=== PATIENT | male | born 1955 ===

== ENCOUNTER 2021-03-13 14:59 | Outpatient (REF) | payer OTHER, SELFPAY ==
[2021-03-15 08:43] LABS: Binax Internal Control QC Valid; Binax Now Covid-19 Ag Positive (Negative)
== END 2021-03-13 15:00 | disposition home or self-care (01) ==
LOC: HO.HMGCLDS 14:59
PROVIDERS: Visit Provider Internal Medicine
DX: Z13.89 Encounter for screening for other disorder (principal)

== ENCOUNTER 2021-04-13 11:27 | Outpatient (REF) | payer OTHER, SELFPAY ==
[2021-04-13 14:09] LABS: Alanine Aminotransferase 64 U/L (0-40); Albumin Level 4.2 g/dL (3.5-5.0); Alkaline Phosphatase 87 U/L (39-117); Anion Gap 15 (12-20); Aspartate Amino Transferase 45 U/L (5-37); Bilirubin Total 0.8 mg/dL (0.0-1.0); Blood Urea Nitrogen 6 mg/dL (9-16); Calcium 9.3 mg/dL (8.4-10.2); Carbon Dioxide 24 mmol/L (22-29); Chloride 105 mmol/L (96-108); Cholesterol 282 mg/dL; Estimated Glomerular Filt Rate > 60; Glucose Fasting 113 mg/dL (60-99); HDL Cholesterol 53 mg/dL; LDL Cholesterol Calculated 165 mg/dl; Potassium 3.9 mmol/L (3.3-5.1); Sodium 140 mmol/L (135-145); Total Protein 7.1 g/dL (6.5-8.0); Triglycerides 324 mg/dL
[2021-04-13 14:31] LABS: Prostate Specific Antigen Scr 1.03 ng/mL (<0.05-4.0); TSH reflex Free T4 2.25 uIU/mL (0.32-4.0)
== END 2021-04-13 11:28 | disposition home or self-care (01) ==
LOC: HO.HMGCLDS 11:27
PROVIDERS: Visit Provider Nurse Practitioner Family
DX: Z00.00 Encounter for general adult medical examination without abnormal findings (principal); Z12.5 Encounter for screening for malignant neoplasm of prostate
CPT/HCPCS: 36415; 80053; 80061; 84153; 84443

== ENCOUNTER 2021-04-24 11:04 | Outpatient (REF) | payer OTHER, SELFPAY ==
--- NOTE | ~2021-04-24 | XR_ITS ---
EXAMINATION: XR HIP, RIGHT CLINICAL INFORMATION: Pain COMPARISON: None TECHNIQUE: Two views of the right hip. FINDINGS: Bone alignment is normal. No fracture or dislocation is seen. There is severe arthritis of the right hip joint with joint space narrowing, osteophyte formation and subchondral cyst formation. Soft tissues are unremarkable. XR/XR hip RT min 2V IMPRESSION: Severe right hip arthritis.
== END 2021-04-24 11:05 | disposition home or self-care (01) ==
LOC: HO.HMGCX 11:04
PROVIDERS: Visit Provider Nurse Practitioner Family
DX: M16.11 Unilateral primary osteoarthritis, right hip (principal); M25.551 Pain in right hip
CPT/HCPCS: 73502

== ENCOUNTER 2021-06-11 08:57 | Outpatient (REF) | payer OTHER, SELFPAY ==
--- NOTE | ~2021-06-11 | US_ITS ---
EXAMINATION: US ABDOMEN COMPLETE CLINICAL INFORMATION: Abnormal levels of other serum enzymes. COMPARISON: None. TECHNIQUE: Real-time imaging of the abdominal viscera. FINDINGS: PANCREAS: Normal. ABDOMINAL AORTA: The proximal, mid, and distal segments are normal in caliber. INFERIOR VENA CAVA: Visualized portions are normal. LIVER: The liver is diffusely echogenic. The liver is normal in size. The liver contour is normal. No focal hepatic lesion. There is no intrahepatic biliary duct dilatation seen. GALLBLADDER: Gallbladder wall thickness is 0.30 cm. The gallbladder is physiologically distended. Multiple mobile gallstones are present. No evidence of gallbladder wall thickening or pericholecystic fluid. COMMON BILE DUCT: Normal in caliber measuring 0.3 cm in diameter. RIGHT KIDNEY: Normal. No hydronephrosis. No renal calculi or focal parenchymal lesions. The kidney measures 10.1 cm in maximum dimension. LEFT KIDNEY: Normal. No hydronephrosis. No renal calculi or focal parenchymal lesions. The kidney measures 11.4 cm in maximum dimension. SPLEEN: Normal. The spleen measures 9.7 cm in maximum dimension. FREE FLUID: None. US/US abdomen complete IMPRESSION: Cholelithiasis without wall thickening. Hepatic steatosis without focal lesion. The rest of the abdominal ultrasound is unremarkable.
== END 2021-06-11 08:58 | disposition home or self-care (01) ==
LOC: HO.HMGCX 08:57
PROVIDERS: PCP Nurse Practitioner Family; Visit Provider Nurse Practitioner Family
DX: R74.8 Abnormal levels of other serum enzymes (principal)
CPT/HCPCS: 76700

== ENCOUNTER 2022-03-01 07:38 | Outpatient (REF) | payer OTHER, SELFPAY ==
[2022-03-01 11:26] LABS: Alanine Aminotransferase 24 U/L (0-40); Albumin Level 4.4 g/dL (3.5-5.0); Alkaline Phosphatase 59 U/L (39-117); Anion Gap 10 (12-20); Aspartate Amino Transferase 25 U/L (5-37); Bilirubin Total 0.6 mg/dL (0.0-1.0); Blood Urea Nitrogen 19 mg/dL (9-16); Calcium 9.1 mg/dL (8.4-10.2); Carbon Dioxide 25 mmol/L (22-29); Chloride 109 mmol/L (96-108); Cholesterol 220 mg/dL; Estimated Glomerular Filt Rate > 60; Glucose Random 99 mg/dL (60-115); HDL Cholesterol 44 mg/dL; LDL Cholesterol Calculated 156 mg/dl; Potassium 4.4 mmol/L (3.3-5.1); Sodium 140 mmol/L (135-145); Total Protein 6.9 g/dL (6.5-8.0); Triglycerides 104 mg/dL
[2022-03-04 22:48] LABS: A. Phagocytphilium DNA,RT-PCR NOT DETECTED (NOT DETECTED); Babesia Microti DNA, RT-PCR NOT DETECTED (NOT DETECTED); Borrelia Miyamotoi,DNA RT-PCR NOT DETECTED (NOT DETECTED); E.Chaffeensis DNA RT-PCR NOT DETECTED (NOT DETECTED); Lyme(Borrelia ssp)DNA RT-PCR NOT DETECTED (NOT DETECTED)
[2022-03-05 04:40] LABS: HBS Num1 0.78 mIU/mL (0-7.99); HBc Num1 0.05 S/CO (0.00-0.79); HBsAGNum1 0.29 S/CO (0.00-0.99); Hepatitis A Antibody IgM 0.21 Index (0-0.79); Hepatitis B Core Antibody Nonreactive (Nonreactive); Hepatitis B Surface Antigen Negative (Negative); ~HepC Num1 0.08 S/CO (0.00-0.79); ~Hepatitis A Antibody IgM Nonreactive (Nonreactive); ~Hepatitis B Surface Antibody NONREACTIVE (Nonreactive); ~Hepatitis C Antibody Nonreactive (Nonreactive)
== END 2022-03-01 07:39 | disposition home or self-care (01) ==
LOC: HO.HMGCLDS 07:38
PROVIDERS: PCP Nurse Practitioner Family; Visit Provider Nurse Practitioner Family
DX: R74.8 Abnormal levels of other serum enzymes (principal); E78.5 Hyperlipidemia, unspecified; T14.8XXA Other injury of unspecified body region, initial encounter; W57.XXXA Bitten or stung by nonvenomous insect and other nonvenomous arthropods, initial encounter
CPT/HCPCS: 36415; 80053; 80061; 86704; 86706; 86709; 86803; 87340; 87798; 87801

== ENCOUNTER 2023-01-01 09:04 | Outpatient (AMB) | payer OTHER, SELFPAY ==
--- NOTE | 2023-01-01 08:41 | A.OFFPC_ITS ---
Intake Visit Reasons: follow up [phone] Allergies No Known Allergies Allergy (Verified 01/01/23 08:41) Tobacco use date assessed: 06/18/22 HPI follow up [phone] HPI Details HTN: Pt has been monitoring his blood pressure at home. He reports that it was in the 140s systolically today, though pt is currently sick. Pt stopped taking his losartan because it was causing dizziness. Will start amlodipine 2.5mg. Will have pt continue to monitor his blood pressure at home and bring values in. Denies chest pain, shortness of breath, headache, dizziness, and blurred vision. Pt stopped taking his rosuvastatin as well because he did not know which med was for BP. Will have him restart this. Labs have already been ordered, encouraged pt to have these drawn. [facility] Medical History Arthritis of right hip Hypertension Generalized anxiety disorder Family History Father Substance use disorder Mother No problems noted. Brother No problems noted. Son No problems noted. Son No problems noted. Sister No problems noted. Sister No problems noted. Daughter No problems noted. Daughter No problems noted. Social History Housing: House Alcohol intake: current Alcohol intake frequency: a few times a month Patient Tobacco Use Status: Never used Tobacco e-Cigarette/Vaping Use: Never Used Second Hand Smoke Exposure: No service: Yes Current occupational status: employed Current occupation: [employer] Current occupational exposures/hazards: Yes Cognitive needs: No Hearing needs: No Vision needs: No Questionnaire Thrive Questionnaire Date Thrive assessed: 04/30/21 RICHARD-7 AMB Questionnaire RICHARD-7 Date RICHARD - 7 assessed: 04/30/21 Source: Developed by Drs. Vlad Christy, Xiomy Peralta, Biju Adan and colleagues, with an educational shola from [facility]. Review of Systems Const Reports as per HPI Physical exam (Primary Care) Tobacco/Smoking Status: Tobacco use Status Tobacco use date assessed 06/18/22 01/01/23 08:43 Patient Tobacco Use Status Never used Tobacco 01/01/23 08:43 e-Cigarette/Vaping Use Never Used 01/01/23 08:43 Thrive Assessment: Date of Thrive Assessment Date Thrive assessed 04/30/21 01/01/23 08:43 Const General: cooperative Orientation/consciousness: patient oriented x3 Neuro General: patient oriented x3 Psych Appearance: grossly normal Mental Status: mental status grossly normal Speech and movement: Clear speech present Affect: normal affect Attitude: cooperative Thought process: Normal thought process present Thought content: Normal thought content present Insight: Good insight present (Psych) Judgement: Good judgement present (Psych) Telehealth Telehealth Location of provider rendering services: practice address Location of patient: address on file Patient Identification confirmed using: Name, : Yes Telehealth method: video Patient verbally consented to treatment: Yes Patient verbally consented to billing insurance company: Yes Patient informed of any privacy concerns related to visit: Yes Minutes spent on Phone/Video with Pt.: 10 Assessment and Plan Assessment & Plan (1) Hypertension: Code(s): I10 - Essential (primary) hypertension Plan: Starting amlodipine (2) Dyslipidemia: Code(s): E78.5 - Hyperlipidemia, unspecified Plan: Labs already ordered, cont rosuvastatin Plan The patient agreed to the use of a ophthalmic medical assistant for this encounter. Scribed for SHERIDAN Fitch by Mariza Godoy ophthalmic medical assistant, on 01/01/2023 at 09:05 EST. Coding Level of Care Code Tele Est Pt Level 3 (39781) Diagnoses Hypertension I10 Dyslipidemia E78.5
== END 2023-01-01 09:54 | disposition home or self-care (01) ==
PROVIDERS: PCP Nurse Practitioner Family; Visit Provider Nurse Practitioner Family
DX: I10 Essential (primary) hypertension (principal); E78.5 Hyperlipidemia, unspecified
CPT/HCPCS: 99213

== ENCOUNTER 2023-03-31 07:18 | Outpatient (REF) | payer OTHER, SELFPAY ==
[2023-03-31 10:21] LABS: MANUAL DIFF FLAG NO
[2023-03-31 10:38] LABS: Basophils Absolute Auto 0.1 X10*3/uL (0.0-0.2); Eosinophils Absolute Auto 0.1 X10*3/uL (0.0-0.4); Hematocrit 43.3 % (42.0-52.0); Hemoglobin 14.2 g/dl (14.0-18.0); Imm Gran Abs Auto 0.02 X10*3/uL (0.00-0.03); Imm Gran Pct Auto 0.3 % (0.0-0.4); Lymphocytes Absolute Auto 2.1 X10*3/uL (1.2-4.9); Lymphocytes Percent Auto 35.7 % (20-40); Mean Corpuscular HGB Conc 32.8 g/dl (31.0-36.0); Mean Corpuscular Volume 91.5 fL (80.0-98.0); Mean Platelet Volume 10.6 fL (9.4-12.4); Monocytes Absolute Auto 0.7 X10*3/uL (0.1-1.2); Monocytes Percent Auto 11.4 % (2-11); Neutrophils Percent Auto 49.6 % (45-73); Platelet Count 251 X10*3/uL (160-400); Red Blood Count 4.73 X10*6/uL (4.60-5.80); Red Cell Distribution Width 12.9 % (11.0-16.0)
[2023-03-31 10:56] LABS: Alanine Aminotransferase 32 U/L (0-40); Albumin Level 4.4 g/dL (3.5-5.0); Alkaline Phosphatase 54 U/L (39-117); Anion Gap 11 (12-20); Aspartate Amino Transferase 36 U/L (5-37); Bilirubin Total 1.1 mg/dL (0.0-1.0); Blood Urea Nitrogen 14 mg/dL (9-16); Calcium 9.6 mg/dL (8.4-10.2); Carbon Dioxide 27 mmol/L (22-29); Chloride 105 mmol/L (96-108); Cholesterol 170 mg/dL (<200); Estimated Glomerular Filt Rate > 60; Glucose Fasting 99 mg/dL (60-99); HDL Cholesterol 101 mg/dL (>40); LDL Cholesterol Calculated 61 mg/dL (<100); Potassium 4.2 mmol/L (3.3-5.1); Sodium 139 mmol/L (135-145); Total Protein 7.4 g/dL (6.5-8.0); Triglycerides 44 mg/dL (<150)
[2023-03-31 11:02] LABS: Prostate Specific Antigen Scr 0.95 ng/mL (<0.05-4.0)
[2023-03-31 11:14] LABS: TSH reflex Free T4 2.48 uIU/mL (0.32-4.0)
[2023-03-31 13:46] LABS: Appearance Urine Clear; Color Urine Dark Yellow; Glucose Urine UA Negative (Negative); Leukocyte Esterase Urine Negative (Negative); Nitrite Urine Negative (Negative); PH 6.5 (5.0-9.0); Specific Gravity - Urine 1.025 (1.005-1.025); Urine Blood Negative (Negative); Urine Ketones Trace mg/dL (Negative); Urine Protein Negative (Neg-Trace)
== END 2023-03-31 07:19 | disposition home or self-care (01) ==
LOC: HO.HMGCLDS 07:18
PROVIDERS: PCP Nurse Practitioner Family; Visit Provider Nurse Practitioner Family
DX: Z12.5 Encounter for screening for malignant neoplasm of prostate (principal); I10 Essential (primary) hypertension
CPT/HCPCS: 36415; 80053; 80061; 81003; 84153; 84443; 85025

== ENCOUNTER 2023-04-20 10:03 | Outpatient (AMB) | payer OTHER, SELFPAY ==
[2023-04-20 10:12] VITALS: BP 132/82; PULSE 78; O2SAT 97; BMI 25.8
--- NOTE | 2023-04-20 10:12 | A.OFFPC_ITS ---
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 Accompanied by: Self / Same As Patient Allergies No Known Allergies Allergy (Verified 04/20/23 10:42) Medication List - Last Reconciled 04/20/23 [facility] alprazolam 0.5 mg PO BID PRN 30 days amlodipine 2.5 mg PO DAILY Tobacco use date assessed: 04/20/23 Fall risk assessment: No Falls in past year Last assessed Fall Risk: 04/20/23 Dental Screening Dental Screen Date: 04/20/23 Did you have a dental visit in the last 12 months?: Yes Did you have a dental problem in the last 6 months where you did not have access to dental care?: No Was dental information given to patient?: Patient has dentist HPI 3 month follow up HPI Details Pt is here for a pre-op evaluation. He is undergoing a right hip replacement on 05/13. Will order labs and EKG. [facility] Medical History (Updated 04/20/23 @ 10:44 by SHERIDAN Nix) Arthritis of right hip Hypertension Generalized anxiety disorder Surgical History (Updated 04/20/23 @ 10:23 by Oswaldo Rodriguez CMA) Hx of hernia repair Family History Father Substance use disorder Mother No problems noted. Brother No problems noted. Son No problems noted. Son No problems noted. Sister No problems noted. Sister No problems noted. Daughter No problems noted. Daughter No problems noted. Social History Housing: House Alcohol intake: current Alcohol intake frequency: a few times a month Patient Tobacco Use Status: Never used Tobacco e-Cigarette/Vaping Use: Never Used Second Hand Smoke Exposure: No service: Yes Current occupational status: employed Current occupation: [employer] Current occupational exposures/hazards: Yes Cognitive needs: No Hearing needs: No Vision needs: No Questionnaire PHQ-9 Over the last 2 weeks, how often have you been bothered by any of the following problems? 1. Little interest or pleasure in doing things: more than half the days 2. Feeling down, depressed, or hopeless: not at all 3. Trouble falling or staying asleep, or sleeping too much: more than half the days 4. Feeling tired or having little energy: several days 5. Poor appetite or overeating: several days 6. Feeling bad about yourself - or that you are a failure or have let yourself or your family down: not at all 7. Trouble concentrating on things, such as reading the newspaper or watching television: not at all 8. Moving or speaking so slowly that other people could have noticed. Or the opposite - being so fidgety or restless that you have been moving around a lot more than usual: not at all 9. Thoughts that you would be better off or of hurting yourself in some way: not at all Total score: 6 Depression Screening Interpretation: Negative Depression Screening Done: Yes 62148 - PHQ-9 Billing: Yes Source: Developed by Drs. Vlad Christy, Xiomy Peralta, Biju Adan and colleagues, with an educational shola from [employer]. Thrive Questionnaire Date Thrive assessed: 04/20/23 I am a: Patient What is your living situation today?: I have a steady place to live Within the past 12 months, did the food you bought not last and you didn't have the money to get more?: Never true Within the past 12 months, did you worry whether your food would run out before you got money to buy more?: Never true Do you have trouble paying for medicines?: No Do you have trouble getting transportation to medical appointments?: No Do you have trouble paying your heating and electricity bill?: No Do you have trouble taking care of your child, family member or friend?: No Do you have trouble with day-to-day activities such as bathing, preparing meals, shopping, managing finances, etc.?: No Are you currently unemployed and looking for a job?: No Are you interested in more education?: No Please select the resources that you would like help with: None Currently or been in a relationship where the following occur: no concerns reported THRIVE Score: 0 AUDIT C Alcohol Use Questionnaire (AUDIT-C) 1. How often do you have a drink containing alcohol?: 4 or more times a week 2. How many drinks containing alcohol do you have on a typical day when you are drinking?: 3 or 4 3. How often do you have six or more drinks on one occasion?: Less than monthly Total Score: 6 Score Reviewed/Action Taken: Yes RICHARD-7 AMB Questionnaire RICHARD-7 Date RICHARD - 7 assessed: 04/20/23 Feeling nervous, anxious, or on edge: 3 = Nearly every day Not being able to stop or control worryin = Several days Worrying too much about different things: 2 = More than half the days Trouble relaxin = Several days Being so restless that it is hard to sit still: 0 = Not at all Becoming easily annoyed or irritable: 0 = Not at all Feeling afraid as if something awful might happen: 1 = Several days Total RICHARD-7 score (0-4 normal; 5-9 mild; 10-14 moderate; 15-21 severe): 8 Source: Developed by Drs. Vlad Christy, Xiomy Peralta, Biju Adan and colleagues, with an educational shola from [employer]. RICHARD-7 Assessment Billing RICHARD-7 Assessment Tool: RICHARD-7 Assessment 41723 Review of Systems Const Denies chills and Denies fever(s) Eyes Denies blurry vision ENT Denies vertigo, Denies dizziness and Denies sore throat Card Denies chest pain at rest, Denies chest pain with activity, Denies diaphoresis, Denies dyspnea and Denies dyspnea on exertion Resp Denies cough, Denies dyspnea, Denies dyspnea on exertion and Denies wheezing GI Denies abdominal pain, Denies melena, Denies hematochezia, Denies constipation, Denies diarrhea and Denies loose stools Denies hematuria Musc Denies numbness and Denies tingling Skin/Breast Denies lesions Neuro Denies vertigo, Denies dizziness, Denies numbness and Denies tingling Psych Denies anxiety, Denies depression, Denies homicidal ideation, Denies suicidal id eation and Denies other (substance abuse) Aller/Immun Denies wheezing Physical exam (Primary Care) Vital Signs: Last Vital Signs Pulse 78 04/20/23 10:12 BP 132/82 04/20/23 10:12 Pulse Ox 97 04/20/23 10:12 Oxygen Delivery Method Room Air 04/20/23 10:12 BMI result Body Mass Index 25.8 Tobacco/Smoking Status: Tobacco use Status Tobacco use date assessed 04/20/23 04/20/23 10:26 Patient Tobacco Use Status Never used Tobacco 04/20/23 10:14 e-Cigarette/Vaping Use Never Used 04/20/23 10:14 PHQ-9: PHQ-9 Score PHQ-9: Total score 6 04/20/23 10:45 Depression Screening Interpretation: Negative Thrive Assessment: Date of Thrive Assessment Date Thrive assessed 04/20/23 04/20/23 10:26 Currently or been in a relationship where the following occur: no concerns reported Const General: cooperative Nutritional Appearance: well nourished Orientation/consciousness: patient oriented x3 Neck Neck: Yes no lymphadenopathy Resp Effort & Inspection: normal respiratory effort Auscultation: clear to auscultation bilaterally Cardio Rate: regular rate Rhythm: regular rhythm Heart sounds: S1 normal heart sound present, S2 normal heart sound present and no murmurs Neuro General: patient oriented x3 Psych Appearance: grossly normal Mental Status: mental status grossly normal Speech and movement: Normal speech and movement present Affect: normal affect Attitude: cooperative Thought process: Normal thought process present Thought content: Normal thought content present Insight: Good insight present (Psych) Judgement: Good judgement present (Psych) Assessment and Plan Assessment & Plan (1) Pre-op evaluation: Code(s): Z01.818 - Encounter for other preprocedural examination Plan The patient agreed to the use of a medical physics teacher for this encounter. Scribed for SHERIDAN Fitch by Mariza Godoy medical physics teacher, on 04/20/2023 at 10:45 EST. Orders: Orders AMB EKG-In Office Today Z.818 - Encounter for other preprocedural examination Complete Blood Count Auto Diff Today Z01.818 - Encounter for other preprocedural examination Comprehensive Met. Panel Today Z01.818 - Encounter for other preprocedural examination TSH reflex Free T4 Today Z01.818 - Encounter for other preprocedural examination UA CC w/rflx Micro + Cult Today Z01.818 - Encounter for other preprocedural examination Coding Level of Care Code Est Pt Prev Care >65y(47365) Diagnoses Pre-op evaluation Z01.818 Additional Codes RICHARD-7 Assessment Billing - RICHARD-7 Assessment Tool: RICHARD-7 Assessment 53598 ([id number])
== END 2023-04-20 11:07 | disposition home or self-care (01) ==
PROVIDERS: PCP Nurse Practitioner Family; Visit Provider Nurse Practitioner Family
DX: Z01.818 Encounter for other preprocedural examination (principal)
CPT/HCPCS: 93000; 99213

== ENCOUNTER 2023-10-20 08:42 | Outpatient (AMB) | payer MEDICARE, SELFPAY ==
--- NOTE | 2023-10-20 08:47 | MHC.PC.OV ---
Vital Signs 10/20/23 08:49 Height 6 ft 2 in Weight 203 lb BMI 26.1 BP 150/80 H Blood Pressure Location Rt brachial Position Sitting Pulse 72 Pulse Source Pulse Oximeter Pulse Oximetry (%) 98 Oxygen Delivery Method Room Air Intake Visit Reasons: 6 month f/u Intake Note: pt is here for 6 month follow up Allergies No Known Allergies Allergy (Verified 10/20/23 08:49) Medication List - Last Reconciled 10/20/23 by SHERIDAN Nix alprazolam 0.5 mg PO BID PRN 30 days lisinopril 2.5 mg PO DAILY Tobacco use date assessed: 04/20/23 Fall risk assessment: No Falls in past year Last assessed Fall Risk: 10/20/23 Dental Screening Dental Screen Date: 04/20/23 HPI 6 month f/u HPI Details HTN: reported some dizziness with use of amlodipine. Med stopped. New onset afib noted today. pt is asymptomatic. Will order a echo, holter, added a BB, and start eliquis. Will also refer him to cardio. [facility] Medical History Arthritis of right hip Hypertension Generalized anxiety disorder Surgical History Hx of hernia repair Family History Father Substance use disorder Mother No problems noted. Brother No problems noted. Son No problems noted. Son No problems noted. Sister No problems noted. Sister No problems noted. Daughter No problems noted. Daughter No problems noted. Social History Housing: House Alcohol intake: current Alcohol intake frequency: a few times a month Patient Tobacco Use Status: Never used Tobacco e-Cigarette/Vaping Use: Never Used Second Hand Smoke Exposure: No service: Yes Current occupational status: employed Current occupation: [employer] Current occupational exposures/hazards: Yes Cognitive needs: No Hearing needs: No Vision needs: No Questionnaire PHQ-9 Over the last 2 weeks, how often have you been bothered by any of the following problems? 1. Little interest or pleasure in doing things: more than half the days 2. Feeling down, depressed, or hopeless: not at all 3. Trouble falling or staying asleep, or sleeping too much: not at all 4. Feeling tired or having little energy: not at all 5. Poor appetite or overeating: not at all 6. Feeling bad about yourself - or that you are a failure or have let yourself or your family down: not at all 7. Trouble concentrating on things, such as reading the newspaper or watching television: not at all 8. Moving or speaking so slowly that other people could have noticed. Or the opposite - being so fidgety or restless that you have been moving around a lot more than usual: not at all 9. Thoughts that you would be better off or of hurting yourself in some way: not at all Total score: 2 Depression Screening Interpretation: Negative Depression Screening Done: Yes 36197 - PHQ-9 Billing: Yes Source: Developed by Drs. Vlad Christy, Xiomy Peralta, Biju Adan and colleagues, with an educational shola from [employer]. Thrive Questionnaire Date Thrive assessed: 10/20/23 I am a: Patient What is your living situation today?: I have a steady place to live Within the past 12 months, did the food you bought not last and you didn't have the money to get more?: Never true Within the past 12 months, did you worry whether your food would run out before you got money to buy more?: Never true Do you have trouble paying for medicines?: No Do you have trouble getting transportation to medical appointments?: No Do you have trouble paying your heating and electricity bill?: No Do you have trouble taking care of your child, family member or friend?: No Do you have trouble with day-to-day activities such as bathing, preparing meals, shopping, managing finances, etc.?: No Are you currently unemployed and looking for a job?: No Are you interested in more education?: No Please select the resources that you would like help with: None Currently or been in a relationship where the following occur: No concerns reported THRIVE Score: 0 AUDIT C Alcohol Use Questionnaire (AUDIT-C) 1. How often do you have a drink containing alcohol?: 2-3 times a week 2. How many drinks containing alcohol do you have on a typical day when you are drinking?: 5 or 6 3. How often do you have six or more drinks on one occasion?: Weekly Total Score: 8 Score Reviewed/Action Taken: Yes RICHARD-7 AMB Questionnaire RICHARD-7 Date RICHARD - 7 assessed: 10/20/23 Feeling nervous, anxious, or on edge: 0 = Not at all Not being able to stop or control worryin = Not at all Worrying too much about different things: 0 = Not at all Trouble relaxin = Not at all Being so restless that it is hard to sit still: 0 = Not at all Becoming easily annoyed or irritable: 0 = Not at all Feeling afraid as if something awful might happen: 0 = Not at all Total RICHARD-7 score (0-4 normal; 5-9 mild; 10-14 moderate; 15-21 severe): 0 Source: Developed by Drs. Vlad Christy, Xiomy Peralta, Biju Adan and colleagues, with an educational shola from [employer]. RICHARD-7 Assessment Billing RICHARD-7 Assessment Tool: RICHARD-7 Assessment [id number] Physical exam (Primary Care) Vital Signs: Last Vital Signs Pulse 72 10/20/23 08:49 BP 150/80 H 10/20/23 08:49 Pulse Ox 98 10/20/23 08:49 Oxygen Delivery Method Room Air 10/20/23 08:49 BMI result Body Mass Index 26.1 Tobacco/Smoking Status: Tobacco use Status Tobacco use date assessed 04/20/23 10/20/23 08:52 Patient Tobacco Use Status Never used Tobacco 10/20/23 08:52 e-Cigarette/Vaping Use Never Used 10/20/23 08:52 PHQ-9: PHQ-9 Score PHQ-9: Total score 2 10/20/23 08:52 Depression Screening Interpretation: Negative Thrive Assessment: Date of Thrive Assessment Date Thrive assessed 10/20/23 10/20/23 08:52 Currently or been in a relationship where the following occur: No concerns reported Resp Effort & Inspection: normal respiratory effort Auscultation: clear to auscultation bilaterally Cardio Other: irregularly irregular Extrem Right lower extremity: no edema Left lower extremity: no edema Psych Appearance: grossly normal Mental Status: mental status grossly normal Speech and movement: Normal speech and movement present Affect: normal affect Attitude: cooperative Thought process: Normal thought process present Assessment and Plan Assessment & Plan (1) New onset a-fib: Code(s): I48.91 - Unspecified atrial fibrillation Orders: Orders CA echo transthoracic complete Today I48.91 - Unspecified atrial fibrillation ECG 7 day holter monitor Today I48.91 - Unspecified atrial fibrillation Referrals Cardiology Referral I48.91 - Unspecified atrial fibrillation Medications: New metoprolol succinate ER 25 mg PO DAILY 90 days 90 tabs 0RF apixaban (Eliquis) 5 mg PO BID 30 days 60 tabs 3RF Coding Level of Care Code Est Pt Level 3 (14541) Diagnoses New onset a-fib I48.91 Additional Codes RICHARD-7 Assessment Billing - RICHARD-7 Assessment Tool: RICHARD-7 Assessment 75754 ([id number])
[2023-10-20 08:49] VITALS: BP 150/80; PULSE 72; O2SAT 98; BMI 26.1
== END 2023-10-20 09:51 | disposition home or self-care (01) ==
PROVIDERS: PCP Nurse Practitioner Family; Visit Provider Nurse Practitioner Family
DX: I48.91 Unspecified atrial fibrillation (principal)
CPT/HCPCS: 99213

== ENCOUNTER → 2023-11-23 13:55 | Outpatient (REF) | payer MEDICARE, SELFPAY ==
--- NOTE | 2023-11-23 14:01 | HM_ITS ---
* Total monitoring time 7 days. * Underlying rhythm is sinus with an average rate of 69/Min. * Rare supraventricular ectopy. * Rare ventricular ectopy including few couplets. No significant runs. * Transient second-degree block during sleep hours. * No patient markers or diary events. MTDD
--- NOTE | 2023-11-23 14:01 | CA_ITS ---
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 The visually estimated ejection fraction is between 50-55%. - No obvious valvular pathology seen on this study. - There is mild dilatation of the ascending aorta measuring 4.00 cm. Findings Left Ventricle Normal left ventricular cavity size. There is mildly increased left ventricular wall thickness. The left ventricular systolic function is low normal. The visually estimated ejection fraction is between 50-55%. There is no evidence of regional wall motion abnormalities. Diastolic function is normal for age. Right Ventricle Mildly increased right ventricular cavity size. There is normal right ventricular systolic function. Atria The left atrium is normal in size. The right atrium is mildly dilated. Aortic Valve The aortic valve was not well visualized. There is no aortic valve stenosis. There is no aortic valve regurgitation. Mitral Valve The mitral valve appears normal. There is trace mitral valve regurgitation. There is no mitral valve stenosis. Pulmonic Valve The pulmonic valve is likely normal. Tricuspid Valve There is mild tricuspid valve regurgitation. There is no evidence of pulmonary hypertension. Great Vessels There is mild dilatation of the ascending aorta measuring 4.00 cm. Venous The inferior vena cava is normal in size and collapses greater than 50% with inspiration. Pericardium/Pleural There is no evidence of pericardial effusion. Prior Study Comparison No prior study available for comparison. Recommendations, Care & Conclusions No obvious valvular pathology seen on this study. Measurements 2D Linear Measurements IVSd: 1.23 0.6-0.9/0.6-1.0 cm LVIDd: 3.73 3.9-5.3/4.2-5.9 cm LVIDd Index: 1.70 2.4-3.2/2.2-3.1 cm/m2 LVIDs: 2.62 2.0-3.6 cm LVPWd: 1.24 0.7-1.1 cm Ao Root: 3.80 2.1-3.5 cm LA Diam: 3.10 2.7-3.8/3.0-4.0 cm LAIDs Index: 1.41 1.5-2.3 cm/m2 LV Mass: 193.89 67-162/88-224 g LV Mass Index: 88.13 43-95/49-115 g/m2 LVOT Diam: 2.60 3.0+(-)1.3 cm 2D Systolic Function EF 4C: 57.30 >55% EF 2C: 59.90 >55% EF BiP: 58.20 >55% Mitral Valve MV Pk E: 0.44 MV PK A: 0.50 MV Decel Time: 143.00 E/A: 0.90 E'Lateral: 9.57 E'Medial: 6.20 E/E' Med: 7.10 E/E' Lat: 4.60 PHT: 42.00 MVA PHT: 5.24 Decel [place]: 3.08 Aortic Valve AoV Pk Singh: 1.08 AoV Mn Singh: 0.73 AoV VTI: 0.25 AoV Pk Grad: 5.00 Aov Mn Grad: 3.00 MONTY Cont.VTI: 3.03 LVOT LVOT Pk Singh: 0.75 LVOT Mn Singh: 0.53 LVOT VTI: 0.14 LVOT Pk Grad: 2.00 LVOT Mn Grad: 1.00 LVOT Diam: 2.60 LVOT Area: 5.31 Diastolic Function MV Pk E: 0.44 MV Pk A: 0.50 E/A: 0.90 E'Medial: 6.20 E/E' Med: 7.10 E' Laterial: 9.57 E/E' Lat: 4.60 Right Ventricle TAPSE (mm): 24.00 TVS' Singh: 11.00 Tricuspid Valve TR Pk Singh: 2.00 TR Pk Grad: 16.00 RA Press: 3.00 RVSP: 19.00 Great Vessels Aorta Ao Root-2D: 3.80 2.0-3.7 cm Ao Asc: 4.00 2.1-3.4 cm Pulmonary Valve PV Pk Singh: 0.80 Peak PV Grad: 3.00 Updated in Other Vendor System with Status of Final Nitin Archer MD electronically signed on 11/23/2023 4:25:45 PM with status of Final
== END ==
LOC: HO.CARD 13:55
PROVIDERS: PCP Nurse Practitioner Family; Visit Provider Nurse Practitioner Family
DX: I48.91 Unspecified atrial fibrillation (principal)
CPT/HCPCS: 93242; 93306

== ENCOUNTER → 2023-11-23 14:01 | Outpatient (BNV) | payer MEDICARE, SELFPAY | PROVIDERS: PCP Nurse Practitioner Family; Visit Provider Internal Medicine | DX: I47.10 Supraventricular tachycardia, unspecified (principal); I44.1 Atrioventricular block, second degree | CPT/HCPCS: 93244; 93306 ==

== ENCOUNTER 2024-02-25 12:50 | Outpatient (AMB) | payer MEDICARE, SELFPAY ==
[2024-02-25 13:08] VITALS: BP 122/78; PULSE 87; BMI 26.3
--- NOTE | 2024-02-25 13:08 | MHC.OFFVIS ---
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 He is a pleasant but anxious male at 68-year-old he had a routine physical exam in September at which time he was noted to have irregular pulse an EKG confirmed atrial fibrillation. He was then promptly started on metoprolol and Eliquis therapy. He had no symptoms at that time. Denied any fluttering or palpitations. Subsequently had a Holter monitor which did not show any evidence of recurrent atrial fibrillation with transient Mobitz type 1 second-degree AV block at nighttime. Echocardiogram showed low normal LVEF of 50-55% with mildly dilated right-sided chambers. He denies any clear history of obstructive sleep apnea with no history of daytime somnolence or morning headaches or tiredness. He does drink caffeine every day. Does not drink much alcohol. No smoking. He denies any exertional symptoms of chest pain or shortness of breath. Denies any heart failure symptoms. No lightheadedness, syncope. He has been tolerating his oral anticoagulation therapy and metoprolol well. [facility] Medical History Paroxysmal atrial fibrillation New onset a-fib Mild ascending aorta dilatation Arthritis of right hip Hypertension Generalized anxiety disorder Surgical History Hx of hernia repair Family History Father Substance use disorder Mother No problems noted. Brother No problems noted. Son No problems noted. Son No problems noted. Sister No problems noted. Sister No problems noted. Daughter No problems noted. Daughter No problems noted. 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 Current occupational exposures/hazards: Yes Cognitive needs: No Hearing needs: No Vision needs: No Review of Systems Const Denies weakness ENT Denies dizziness Card Denies chest pain, Denies chest pain with activity, Denies syncope, Denies rapid heart rate, Denies pedal edema, Denies edema, Denies leg edema, Denies lightheadedness, Denies palpitations, Denies dyspnea, Denies dyspnea on exertion and Denies orthopnea Resp Denies cough, Denies dyspnea and Denies dyspnea on exertion GI Denies hematochezia and Denies change in stool character Musc Denies abnormal gait, Denies muscle cramps, Denies muscle weakness, Denies numbness, Denies radiating pain into limb and Denies tingling Neuro Denies abnormal gait, Denies dizziness, Denies syncope, Denies numbness, Denies tingling and Denies weakness Endo Denies palpitations Physical Exam Vital Signs: Last Vital Signs Pulse 87 02/25/24 13:08 BP 122/78 02/25/24 13:08 BMI result Body Mass Index 26.3 Const General: cooperative, comfortable, no acute distress, alert, awake, Physically active and anxious Nutritional Appearance: average body habitus Orientation/consciousness: patient oriented x3 Limitations: no limitations HEENT Head: Yes normocephalic and Yes atraumatic Neck Neck: Yes trachea midline, Yes supple and Yes no JVD Resp Effort & Inspection: normal respiratory effort Auscultation: clear to auscultation bilaterally Cardio Jugular venous distension: no JVD Palpation: normal PMI Rate: regular rate Rhythm: regular rhythm Heart sounds: S1 normal heart sound present, S2 normal heart sound present, no click, no gallops, no murmurs and no rubs GI Auscultation: normal bowel sounds Skin General skin exam: no rashes or lesions noted Neuro General: patient oriented x3 and no focal motor deficits Extrem General: Yes no clubbing, cyanosis or edema Psych Appearance: grossly normal Office Procedures EKG Details: EKG shows normal sinus rhythm with normal EKG 42096-[id number], Complete Assessment & Plan Assessment & Plan (1) Paroxysmal atrial fibrillation: Code(s): I48.0 - Paroxysmal atrial fibrillation Category: Medical Plan: Paroxysmal atrial fibrillation with newly detected atrial fibrillation without any symptoms and noted incidentally on physical exam confirmed by EKG. Subsequent Holter monitor showed paroxysmal AFib and today's EKG shows normal sinus rhythm. Remains completely asymptomatic. This is going to lead to difficulty in managing atrial fibrillation in the future although we discussed about rhythm control approach inpatient his age. He is currently done well with metoprolol and Eliquis therapy. CHADSVASc score of 1 with atrial enlargement, I would pursue long-term oral anticoagulation therapy with him. This was discussed with him including rationale for oral anticoagulation therapy. Understands agrees. Avoidance of stimulants especially alcohol was discussed. Given his right-sided chamber enlargement need to rule out underlying sleep apnea as a cause and trigger for atrial fibrillation. This was discussed with him. Will schedule him for home sleep study. (2) Enlarged thoracic aorta: Code(s): I77.89 - Other specified disorders of arteries and arterioles Category: Medical Plan: Mildly enlarged thoracic aorta. Will monitor by echocardiogram on annual basis. Blood pressure is currently well optimized. Continue metoprolol therapy. Consider statin therapy if LDL is elevated greater than 100 mg/dL. Target goal LDL less than 100 mg/dL. Will follow up in the clinic in 1 year's time, sooner p.r.n.. Thank you for allowing me to partake in his care Orders: Orders RT home sleep study Today I48.0 - Paroxysmal atrial fibrillation, R06.81 - Apnea, not elsewhere classified CA echo transthoracic complete 1 Year I48.0 - Paroxysmal atrial fibrillation Coding Level of Care Code New Pt Level 4 (80879) Complex EM visit Add On G2211 Diagnoses Paroxysmal atrial fibrillation I48.0 Enlarged thoracic aorta I77.89 CPT Codes EKG - CPT: 23599-[id number], Complete ([id number])
== END 2024-02-25 13:39 | disposition home or self-care (01) ==
PROVIDERS: PCP Nurse Practitioner Family; Visit Provider Internal Medicine Cardiovascular Disease
DX: I48.0 Paroxysmal atrial fibrillation (principal); I77.89 Other specified disorders of arteries and arterioles
CPT/HCPCS: 93010; 99204; G2211

== ENCOUNTER → 2024-02-25 12:50 | Outpatient (BNVA) | payer MEDICARE, SELFPAY | PROVIDERS: PCP Nurse Practitioner Family; Visit Provider Internal Medicine Cardiovascular Disease | DX: I48.0 Paroxysmal atrial fibrillation (principal); I77.89 Other specified disorders of arteries and arterioles; R06.81 Apnea, not elsewhere classified | CPT/HCPCS: 93005; 99202 ==

== ENCOUNTER 2024-03-17 13:03 | Outpatient (REF) | payer MEDICARE, SELFPAY ==
[2024-03-17 16:00] LABS: MANUAL DIFF FLAG NO
[2024-03-17 16:09] LABS: Basophils Absolute Auto 0.1 X10*3/uL (0.0-0.2); Basophils Percent Auto 1.2 % (0-2); Eosinophils Absolute Auto 0.1 X10*3/uL (0.0-0.4); Eosinophils Percent Auto 1.6 % (0-4); Hematocrit 43.9 % (42.0-52.0); Hemoglobin 14.6 g/dl (14.0-18.0); Imm Gran Abs Auto 0.02 X10*3/uL (0.00-0.03); Imm Gran Pct Auto 0.3 % (0.0-0.4); Lymphocytes Absolute Auto 2.3 X10*3/uL (1.2-4.9); Lymphocytes Percent Auto 37.3 % (20-40); Mean Corpuscular HGB Conc 33.3 g/dl (31.0-36.0); Mean Corpuscular Hemoglobin 31.1 pg (27.0-33.0); Mean Corpuscular Volume 93.4 fL (80.0-98.0); Mean Platelet Volume 10.2 fL (9.4-12.4); Monocytes Absolute Auto 0.7 X10*3/uL (0.1-1.2); Monocytes Percent Auto 10.9 % (2-11); Neutrophils Percent Auto 48.7 % (45-73); Platelet Count 286 X10*3/uL (160-400); Red Cell Distribution Width 12.9 % (11.0-16.0); White Blood Count 6.1 X10*3/uL (4.8-10.8)
[2024-03-17 16:38] LABS: Alanine Aminotransferase 27 U/L (0-40); Albumin Level 4.4 g/dL (3.5-5.0); Alkaline Phosphatase 59 U/L (39-117); Anion Gap 12 (12-20); Aspartate Amino Transferase 31 U/L (5-37); Bilirubin Total 0.7 mg/dL (0.0-1.0); Blood Urea Nitrogen 14 mg/dL (9-16); Calcium 8.8 mg/dL (8.4-10.2); Carbon Dioxide 26 mmol/L (22-29); Chloride 105 mmol/L (96-108); Estimated Glomerular Filt Rate > 60; Glucose Random 121 mg/dL (60-115); Potassium 3.9 mmol/L (3.3-5.1); Sodium 139 mmol/L (135-145); Total Protein 7.7 g/dL (6.5-8.0)
[2024-03-17 16:53] LABS: TSH reflex Free T4 2.55 uIU/mL (0.32-4.0)
== END 2024-03-17 13:04 | disposition home or self-care (01) ==
LOC: HO.HMGCLDS 13:03
PROVIDERS: PCP Nurse Practitioner Family; Visit Provider Nurse Practitioner Family
DX: Z01.818 Encounter for other preprocedural examination (principal)
CPT/HCPCS: 36415; 80053; 84443; 85025

== ENCOUNTER 2024-03-28 07:30 | Outpatient (REF) | payer MEDICARE, SELFPAY ==
[2024-03-28 10:00] LABS: Appearance Urine Clear; Color Urine Yellow; Glucose Urine UA Negative (Negative); Leukocyte Esterase Urine Negative (Negative); Nitrite Urine Negative (Negative); Specific Gravity - Urine 1.015 (1.005-1.025); Urine Blood Negative (Negative); Urine Ketones Negative (Negative); Urine Protein Negative (Neg-Trace)
== END 2024-03-28 07:31 | disposition home or self-care (01) ==
LOC: HO.HMGCLNP 07:30
PROVIDERS: PCP Nurse Practitioner Family; Visit Provider Nurse Practitioner Family
DX: Z13.89 Encounter for screening for other disorder (principal)
CPT/HCPCS: 81003

== ENCOUNTER 2024-03-28 08:13 | Outpatient (AMB) | payer MEDICARE, SELFPAY ==
[2024-03-28 08:19] VITALS: BP 130/80; PULSE 79; TEMP 36.6; O2SAT 98; BMI 27.0
--- NOTE | 2024-03-28 08:19 | MHC.PC.OV ---
Vital Signs 03/28/24 08:19 Height 6 ft 2 in Weight 210 lb BMI 27.0 BP 130/80 Blood Pressure Location Lt brachial Position Sitting Pulse 79 Pulse Source Pulse Oximeter Temp 97.9 F Temp Source Oral Pulse Oximetry (%) 98 Oxygen Delivery Method Room Air Intake Visit Reasons: 6 month follow up Allergies No Known Allergies Allergy (Verified 03/28/24 08:36) Medication List - Last Reconciled 03/28/24 by Lan Logan, [facility]- alprazolam 0.5 mg PO BID PRN 30 days apixaban (Eliquis) 5 mg PO BID 30 days metoprolol succinate ER 25 mg PO DAILY 90 days Tobacco use date assessed: 03/28/24 Fall risk assessment: No Falls in past year Last assessed Fall Risk: 03/28/24 Dental Screening Dental Screen Date: 03/28/24 Did you have a dental visit in the last 12 months?: Yes Did you have a dental problem in the last 6 months where you did not have access to dental care?: No Was dental information given to patient?: Patient has dentist HPI 6 month follow up HPI Details Chief Complaint Follow-up for hypertension and paroxysmal atrial fibrillation History of Present Illness The patient is a 68-year-old male presenting with hypertension and paroxysmal atrial fibrillation. Previously, he was evaluated by cardiology at the end of January. At that time, echocardiogram did not reveal any acute findings, and no recurrent atrial fibrillation was detected on the Holter monitor. His treatment regimen includes a beta-celso and anticoagulant therapy, both of which have been continued. Currently, the patient remains asymptomatic despite findings suggestive of atrial fibrillation, without reported palpitations or related symptoms. Follow-up with cardiology is scheduled for one year from the previous consultation. Social History Health Maintenance - Continue monitoring for recurrent atrial fibrillation - Follow-up with cardiology scheduled for one year Review of Systems Cardiovascular: Reports being completely asymptomatic despite atrial fibrillation Physical Exam General: Cooperative, healthy appearing, comfortable, no acute distress and well developed Orientation: Patient oriented x3 Limitations: No limitations Head: Normal to inspection Ears: Hearing grossly normal bilaterally Nose: Normal external nose present Face and sinus: Normal facial exam Eyes: Appearance normal, both eyes and all related structures Neck: Normal visual inspection and Yes full ROM Respiratory: Normal respiratory effort and able to speak in complete sentences. Clear to auscultation bilaterally Cardiovascular: Irregularly irregular rate and rhythm. Normal S1 and S2 GI: Normal to inspection. Soft to palpation and nontender Skin: No rashes or lesions noted Neuro: Patient oriented x3 Extremities: Normal to inspection Results Plan - Continue current beta-celso therapy - Continue anticoagulation therapy - Monitor and encourage patient to follow up for laboratory tests - Cardiology follow-up scheduled in one year Patient was informed and verbally consented to the use of an ambient scribe for clinic note documentation during this visit. Discussion Notes During today's visit, I discussed with the patient the current status of his hypertension and paroxysmal atrial fibrillation. The echocardiogram did not reveal any acute pathology, and no recurrent atrial fibrillation was noted on the earlier Holter monitor. Therefore, we will continue the treatment regimen with a beta-celso and anticoagulant, given his current asymptomatic status. I emphasized the importance of regular follow-up for laboratory investigations and adhering to the cardiology follow-up scheduled in one year to monitor his condition. We addressed his current irregular heart rhythm, notably asymptomatic, and will continue surveillance. Patient Instructions [facility] Medical History Paroxysmal atrial fibrillation New onset a-fib Mild ascending aorta dilatation Arthritis of right hip Hypertension Generalized anxiety disorder Surgical History S/P hip replacement Hx of hernia repair Family History Father Substance use disorder Mother No problems noted. Brother No problems noted. Son No problems noted. Son No problems noted. Sister No problems noted. Sister No problems noted. Daughter No problems noted. Daughter No problems noted. 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 1. Little interest or pleasure in doing things: more than half the days 2. Feeling down, depressed, or hopeless: not at all 3. Trouble falling or staying asleep, or sleeping too much: not at all 4. Feeling tired or having little energy: not at all 5. Poor appetite or overeating: not at all 6. Feeling bad about yourself - or that you are a failure or have let yourself or your family down: not at all 7. Trouble concentrating on things, such as reading the newspaper or watching television: not at all 8. Moving or speaking so slowly that other people could have noticed. Or the opposite - being so fidgety or restless that you have been moving around a lot more than usual: not at all 9. Thoughts that you would be better off or of hurting yourself in some way: not at all Total score: 2 Depression Screening Interpretation: Negative Depression Screening Done: Yes 24154 - PHQ-9 Billing: Yes Source: Developed by Drs. Vlad Christy, Xiomy Peralta, Biju Adan and colleagues, with an educational shola from [employer]. Thrive Questionnaire Date Thrive assessed: 03/28/24 I am a: Patient What is your living situation today?: I have a steady place to live Within the past 12 months, did the food you bought not last and you didn't have the money to get more?: Never true Within the past 12 months, did you worry whether your food would run out before you got money to buy more?: Never true Do you have trouble paying for medicines?: No Do you have trouble getting transportation to medical appointments?: No Do you have trouble paying your heating and electricity bill?: No Do you have trouble taking care of your child, family member or friend?: No Do you have trouble with day-to-day activities such as bathing, preparing meals, shopping, managing finances, etc.?: No Are you currently unemployed and looking for a job?: No Are you interested in more education?: No Please select the resources that you would like help with: None Currently or been in a relationship where the following occur: No concerns reported THRIVE Score: 0 AUDIT C Alcohol Use Questionnaire (AUDIT-C) 1. How often do you have a drink containing alcohol?: 2-3 times a week 2. How many drinks containing alcohol do you have on a typical day when you are drinking?: 5 or 6 3. How often do you have six or more drinks on one occasion?: Weekly Total Score: 8 Score Reviewed/Action Taken: Yes RICHARD-7 AMB Questionnaire RICHARD-7 Date RICHARD - 7 assessed: 03/28/24 Feeling nervous, anxious, or on edge: 0 = Not at all Not being able to stop or control worryin = Not at all Worrying too much about different things: 0 = Not at all Trouble relaxin = Not at all Being so restless that it is hard to sit still: 0 = Not at all Becoming easily annoyed or irritable: 0 = Not at all Feeling afraid as if something awful might happen: 0 = Not at all Total RICHARD-7 score (0-4 normal; 5-9 mild; 10-14 moderate; 15-21 severe): 0 Source: Developed by Drs. Vlad Christy, Xiomy Peralta, Biju Adan and colleagues, with an educational shola from [employer]. RICHARD-7 Assessment Billing RICHARD-7 Assessment Tool: RICHARD-7 Assessment 23204 Physical exam (Primary Care) Vital Signs: Last Vital Signs Temp 97.9 F 03/28/24 08:19 Pulse 79 03/28/24 08:19 BP 130/80 03/28/24 08:19 Pulse Ox 98 03/28/24 08:19 Oxygen Delivery Method Room Air 03/28/24 08:19 BMI result Body Mass Index 27.0 Tobacco/Smoking Status: Tobacco use Status Tobacco use date assessed 03/28/24 03/28/24 08:24 Patient Tobacco Use Status Never used Tobacco 03/28/24 08:19 e-Cigarette/Vaping Use Never Used 03/28/24 08:19 PHQ-9: PHQ-9 Score PHQ-9: Total score 2 03/28/24 08:38 Depression Screening Interpretation: Negative Thrive Assessment: Date of Thrive Assessment Date Thrive assessed 03/28/24 03/28/24 08:27 Currently or been in a relationship where the following occur: No concerns reported Coding Level of Care Code Est Pt Level 3 (48119) Diagnoses Hypertension I10 Paroxysmal atrial fibrillation I48.0 Screening PSA (prostate specific antigen) Z12.5 Additional Codes RICHARD-7 Assessment Billing - RICHARD-7 Assessment Tool: IRCHARD-7 Assessment 97956 ([id number]) PHQ-9 - 85973 - PHQ-9 Billing: Yes ([id number]) Assessment & Plan Assessment & Plan (1) Hypertension: Code(s): I10 - Essential (primary) hypertension Category: Medical (2) Paroxysmal atrial fibrillation: Code(s): I48.0 - Paroxysmal atrial fibrillation Category: Medical (3) Screening PSA (prostate specific antigen): Code(s): Z12.5 - Encounter for screening for malignant neoplasm of prostate Category: Medical Plan . Orders: Orders Comprehensive Schlater. Panel Fast Today I10 - Essential (primary) hypertension, I48.0 - Paroxysmal atrial fibrillation Complete Blood Count Auto Diff Today I10 - Essential (primary) hypertension, I48.0 - Paroxysmal atrial fibrillation Lipid Panel Today I10 - Essential (primary) hypertension, I48.0 - Paroxysmal atrial fibrillation Prostate Specific Antigen Scr Today Z12.5 - Encounter for screening for malignant neoplasm of prostate
== END 2024-03-28 08:37 | disposition home or self-care (01) ==
PROVIDERS: PCP Nurse Practitioner Family; Visit Provider Nurse Practitioner Family
DX: I10 Essential (primary) hypertension (principal); I48.0 Paroxysmal atrial fibrillation; Z12.5 Encounter for screening for malignant neoplasm of prostate

== ENCOUNTER → 2024-03-28 08:13 | Outpatient (BNVA) | payer MEDICARE, SELFPAY | PROVIDERS: PCP Nurse Practitioner Family; Visit Provider Nurse Practitioner Family | DX: I10 Essential (primary) hypertension (principal); I48.0 Paroxysmal atrial fibrillation | CPT/HCPCS: 81003; 96127; 99212 ==

== ENCOUNTER 2024-09-27 09:02 | Outpatient (AMB) | payer MEDICARE, SELFPAY ==
[2024-09-27 09:14] VITALS: BP 132/80; PULSE 84; O2SAT 98; BMI 26.2
--- NOTE | 2024-09-27 09:14 | MHC.PC.OV ---
Vital Signs 09/27/24 09:14 Height 6 ft 2 in Weight 204 lb 4 oz BMI 26.2 BP 132/80 Blood Pressure Location Lt brachial Position Sitting Pulse 84 Pulse Source Pulse Oximeter Pulse Oximetry (%) 98 Intake Visit Reasons: 6m follow up Allergies No Known Allergies Allergy (Verified 09/27/24 09:32) Medication List - Last Reconciled 09/27/24 by Lan Logan, [facility]- alprazolam 0.5 mg PO BID PRN 30 days apixaban (Eliquis) 5 mg PO BID metoprolol succinate ER 25 mg PO DAILY Tobacco use date assessed: 03/28/24 Fall risk assessment: No Falls in past year Last assessed Fall Risk: 09/27/24 Dental Screening Dental Screen Date: 03/28/24 HPI 6m follow up HPI Details Chief Complaint The patient presents for follow-up care for hypertension and dyslipidemia. History of Present Illness The patient is a 68-year-old male presenting with hypertension and dyslipidemia. Hypertension is currently stable, and the patient is on metoprolol 25 mg daily. He has a history of atrial fibrillation and has been under cardiology care in the past. The patient reports feeling well overall, denying any chest pain, shortness of breath, palpitations, or dizziness. He has not completed the lab work ordered in March but plans to do so soon. Social History Health Maintenance Review of Systems - Cardiovascular: Denies chest pain, palpitations, or dizziness. - Respiratory: Denies shortness of breath. Physical Exam General: Cooperative, healthy appearing, comfortable, no acute distress and well developed Orientation: Patient oriented x3 Limitations: No limitations Head: Normal to inspection Ears: Hearing grossly normal bilaterally Nose: Normal external nose present Face and sinus: Normal facial exam Eyes: Appearance normal, both eyes and all related structures Neck: Normal visual inspection and Yes full ROM Respiratory: Normal respiratory effort and able to speak in complete sentences. Clear to auscultation bilaterally Cardiovascular: Regular rate and rhythm. Normal S1 and S2. No carotid bruits auscultated GI: Normal to inspection. Soft to palpation and nontender Skin: No rashes or lesions noted Neuro: Patient oriented x3 Extremities: Normal to inspection Results Plan The patient will be encouraged to complete the laboratory tests that were ordered in March to monitor his dyslipidemia and hypertension. Follow-up with cardiology will be considered to manage his atrial fibrillation. A follow-up appointment is scheduled in six months to reassess his condition and review lab results. Discussion Notes I discussed with the patient the importance of completing his laboratory tests to monitor his conditions effectively. We also talked about the need for a cardiology follow-up to manage his atrial fibrillation. I advised him to return for a follow-up visit in six months to evaluate his progress and review lab results. Patient Instructions - Please complete the lab tests as soon as possible. 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 - Return for a follow-up visit in six months. [facility] Medical History Paroxysmal atrial fibrillation New onset a-fib Mild ascending aorta dilatation Arthritis of right hip Hypertension Generalized anxiety disorder Surgical History S/P hip replacement Hx of hernia repair Family History Father Substance use disorder Mother No problems noted. Brother No problems noted. Son No problems noted. Son No problems noted. Sister No problems noted. Sister No problems noted. Daughter No problems noted. Daughter No problems noted. Social History Housing: House Alcohol intake: current Alcohol intake frequency: a few times a month Patient Tobacco Use Status: Never used Tobacco e-Cigarette/Vaping Use: Never Used Second Hand Smoke Exposure: No service: Yes Current occupational status: employed Current occupation: [employer] Current occupational exposures/hazards: Yes Cognitive needs: No Hearing needs: No Vision needs: No Questionnaire PHQ-9 Over the last 2 weeks, how often have you been bothered by any of the following problems? 1. Little interest or pleasure in doing things: not at all 2. Feeling down, depressed, or hopeless: not at all 3. Trouble falling or staying asleep, or sleeping too much: not at all 4. Feeling tired or having little energy: not at all 5. Poor appetite or overeating: not at all 6. Feeling bad about yourself - or that you are a failure or have let yourself or your family down: not at all 7. Trouble concentrating on things, such as reading the newspaper or watching television: not at all 8. Moving or speaking so slowly that other people could have noticed. Or the opposite - being so fidgety or restless that you have been moving around a lot more than usual: not at all 9. Thoughts that you would be better off or of hurting yourself in some way: not at all Total score: 0 Depression Screening Interpretation: Negative Depression Screening Done: Yes 68144 - PHQ-9 Billing: Yes Source: Developed by Drs. Vlad Christy, Xiomy Peralta, Biju Adan and colleagues, with an educational shola from [employer]. Thrive Questionnaire Date Thrive assessed: 09/27/24 I am a: Patient What is your living situation today?: I have a steady place to live Within the past 12 months, did the food you bought not last and you didn't have the money to get more?: Never true Within the past 12 months, did you worry whether your food would run out before you got money to buy more?: Sometimes True Do you have trouble paying for medicines?: No Do you have trouble getting transportation to medical appointments?: No Do you have trouble paying your heating and electricity bill?: No Do you have trouble taking care of your child, family member or friend?: No Do you have trouble with day-to-day activities such as bathing, preparing meals, shopping, managing finances, etc.?: No Are you currently unemployed and looking for a job?: No Are you interested in more education?: No Please select the resources that you would like help with: Food Currently or been in a relationship where the following occur: No concerns reported THRIVE Score: 1 AUDIT C Alcohol Use Questionnaire (AUDIT-C) 1. How often do you have a drink containing alcohol?: 2-3 times a week 2. How many drinks containing alcohol do you have on a typical day when you are drinking?: 3 or 4 3. How often do you have six or more drinks on one occasion?: Monthly Total Score: 6 Score Reviewed/Action Taken: Yes RICHARD-7 AMB Questionnaire RICHARD-7 Date RICHARD - 7 assessed: 09/27/24 Feeling nervous, anxious, or on edge: 0 = Not at all Not being able to stop or control worryin = Not at all Worrying too much about different things: 0 = Not at all Trouble relaxin = Not at all Being so restless that it is hard to sit still: 0 = Not at all Becoming easily annoyed or irritable: 0 = Not at all Feeling afraid as if something awful might happen: 0 = Not at all Total RICHARD-7 score (0-4 normal; 5-9 mild; 10-14 moderate; 15-21 severe): 0 Source: Developed by Drs. Vlad Christy, Xiomy Peralta, Biju Adan and colleagues, with an educational shola from [employer]. RICHARD-7 Assessment Billing RICHARD-7 Assessment Tool: RICHARD-7 Assessment 89223 Physical exam (Primary Care) Vital Signs: Last Vital Signs Pulse 84 09/27/24 09:14 BP 132/80 09/27/24 09:14 Pulse Ox 98 09/27/24 09:14 BMI result Body Mass Index 26.2 Tobacco/Smoking Status: Tobacco use Status Tobacco use date assessed 03/28/24 09/27/24 09:17 Patient Tobacco Use Status Never used Tobacco 09/27/24 09:17 e-Cigarette/Vaping Use Never Used 09/27/24 09:17 PHQ-9: PHQ-9 Score PHQ-9: Total score 0 09/27/24 09:17 Depression Screening Interpretation: Negative Thrive Assessment: Date of Thrive Assessment Date Thrive assessed 09/27/24 09/27/24 09:17 Currently or been in a relationship where the following occur: No concerns reported Coding Level of Care Code Est Pt Level 3 (29656) Diagnoses Hypertension I10 Dyslipidemia E78.5 Additional Codes RICHARD-7 Assessment Billing - RICHARD-7 Assessment Tool: RICHARD-7 Assessment 07573 ([id number]) PHQ-9 - 64392 - PHQ-9 Billing: Yes ([id number]) Assessment & Plan Assessment & Plan (1) Hypertension: Code(s): I10 - Essential (primary) hypertension Category: Medical (2) Dyslipidemia: Code(s): E78.5 - Hyperlipidemia, unspecified Category: Medical Plan .
== END 2024-09-27 09:31 | disposition home or self-care (01) ==
LOC: HO.HMCC 09:03
PROVIDERS: PCP Nurse Practitioner Family; Visit Provider Nurse Practitioner Family
DX: I10 Essential (primary) hypertension (principal); E78.5 Hyperlipidemia, unspecified

== ENCOUNTER → 2024-09-27 09:02 | Outpatient (BNVA) | payer MEDICARE, SELFPAY | PROVIDERS: PCP Nurse Practitioner Family; Visit Provider Nurse Practitioner Family | DX: I10 Essential (primary) hypertension (principal); E78.5 Hyperlipidemia, unspecified | CPT/HCPCS: 96127; 99212 ==

== ENCOUNTER 2024-11-17 06:59 | Outpatient (REF) | payer MEDICARE, SELFPAY ==
[2024-11-17 07:15] LABS: MANUAL DIFF FLAG NO
[2024-11-17 07:42] LABS: Hematocrit 41.9 % (42.0-52.0); Hemoglobin 14.2 g/dl (14.0-18.0); Imm Gran Abs Auto 0.02 X10*3/uL (0.00-0.03); Imm Gran Pct Auto 0.4 % (0.0-0.4); Lymphocytes Absolute Auto 2.2 X10*3/uL (1.2-4.9); Mean Corpuscular HGB Conc 33.9 g/dl (31.0-36.0); Mean Corpuscular Hemoglobin 30.6 pg (27.0-33.0); Mean Corpuscular Volume 90.3 fL (80.0-98.0); NRBC Abs Auto 0.000 X10*3/uL (0.0-0.012); NRBC Pct Auto 0.0 /100WBC (0.0-0.2); Platelet Count 228 X10*3/uL (160-400); Red Blood Count 4.64 X10*6/uL (4.60-5.80); White Blood Count 5.2 X10*3/uL (4.8-10.8)
[2024-11-17 08:53] LABS: Alanine Aminotransferase 24 U/L (0-40); Albumin Level 4.6 g/dL (3.5-5.0); Alkaline Phosphatase 60 U/L (39-117); Anion Gap 12 (12-20); Aspartate Amino Transferase 35 U/L (5-37); Blood Urea Nitrogen 16 mg/dL (9-16); Calcium 9.2 mg/dL (8.4-10.2); Carbon Dioxide 24 mmol/L (22-29); Chloride 108 mmol/L (96-108); Cholesterol 207 mg/dL (<200); Estimated Glomerular Filt Rate > 60; HDL Cholesterol 78 mg/dL (>40); Potassium 4.3 mmol/L (3.3-5.1); Sodium 140 mmol/L (135-145); Total Protein 7.1 g/dL (6.5-8.0); Triglycerides 47 mg/dL (<150)
== END 2024-11-17 07:00 | disposition home or self-care (01) ==
LOC: HO.LAB 06:59
PROVIDERS: PCP Nurse Practitioner Family; Visit Provider Nurse Practitioner Family
DX: Z12.5 Encounter for screening for malignant neoplasm of prostate (principal); I48.0 Paroxysmal atrial fibrillation; I10 Essential (primary) hypertension
CPT/HCPCS: 36415; 80053; 80061; 84153; 85025

== ENCOUNTER → 2025-02-24 12:48 | Outpatient (REF) | payer MEDICARE, SELFPAY ==
--- NOTE | 2025-02-24 12:52 | CA_ITS ---
Transthoracic Echocardiogram Patient (Last, First, Middle): Vlad Harris P Gender: M Date of : 1955 Age: 69 Procedure Date: 02/24/2025 Procedure Type: Transthoracic Echocardiogram Location: OP Height: 187.96 cm Weight: 92.53 kg BSA: 2.19 m2 Heart Rate: 75 bpm BP: 132 / 80 mmHg Undergraduate Intern: ELI Referring MD: Panfilo Lorenzo MD Director Of Dementia Operations: Panfilo Lorenzo MD Symptoms: I48.0 - Paroxysmal atrial fibrillation Study Quality: Adequate ECG Rhythm: Sinus Conclusions: - 1. Normal LV ejection fraction 55-60% 2. Normal cardiac valvular Dopplers 3. Normal RV systolic pressure 4. Mildly dilated ascending aorta at 4 cm 5. No gross pericardial effusion Findings Left Ventricle Normal left ventricular size, thickness, and systolic function. The visually estimated ejection fraction is between 55-60%. Spectral Doppler is indicative of a normal filling pattern. Right Ventricle Normal right ventricular cavity size and systolic function. Atria Both atria are normal in size. Interatrial shunt cannot be excluded. Aortic Valve The aortic valve was not well visualized. There is no aortic valve stenosis. There is no aortic valve regurgitation. Mitral Valve Likely normal mitral valve structure and function. There is trace mitral valve regurgitation. There is no mitral valve stenosis. Pulmonic Valve The pulmonic valve is likely normal. Tricuspid Valve Normal tricuspid valve structure. There is trace tricuspid valve regurgitation. The right ventricular systolic pressure is normal. The right ventricular systolic pressure is 21 mmHg. Normal right atrial pressure. There is no evidence of pulmonary hypertension. Great Vessels The aorta was not well visualized. The pulmonary artery was not well visualized. There is mild dilatation of the ascending aorta measuring 4.00 cm. Venous The inferior vena cava is normal in size and collapses greater than 50% with inspiration. Pericardium/Pleural There is no evidence of pericardial effusion. Prior Study Comparison Changes noted compared to prior study dated: 11/23/2023. LV ejection fraction has marginally improved Measurements 2D Linear Measurements IVSd: 0.84 0.6-0.9/0.6-1.0 cm LVIDd: 5.32 3.9-5.3/4.2-5.9 cm LVIDd Index: 2.43 2.4-3.2/2.2-3.1 cm/m2 LVIDs: 4.49 2.0-3.6 cm LVPWd: 0.67 0.7-1.1 cm LA Diam: 3.40 2.7-3.8/3.0-4.0 cm LAIDs Index: 1.55 1.5-2.3 cm/m2 LV Mass: 173.89 67-162/88-224 g LV Mass Index: 79.40 43-95/49-115 g/m2 LVOT Diam: 3.10 3.0+(-)1.3 cm 2D Systolic Function EF 4C: 57.60 >55% EF 2C: 59.00 >55% EF BiP: 58.10 >55% Mitral Valve MV Pk E: 0.58 MV PK A: 0.48 MV Decel Time: 322.00 E/A: 1.20 E'Lateral: 11.30 E'Medial: 7.72 E/E' Med: 7.60 E/E' Lat: 5.20 PHT: 94.00 MVA PHT: 2.34 Decel [place]: 1.81 Aortic Valve AoV Pk Singh: 1.11 AoV Pk Grad: 5.00 MONTY: 6.23 LVOT LVOT Pk Singh: 0.94 LVOT Mn Singh: 0.65 LVOT VTI: 0.20 LVOT Pk Grad: 4.00 LVOT Mn Grad: 2.00 LVOT Diam: 3.10 LVOT Area: 7.55 Diastolic Function MV Pk E: 0.58 MV Pk A: 0.48 E/A: 1.20 E'Medial: 7.72 E/E' Med: 7.60 E' Laterial: 11.30 E/E' Lat: 5.20 Right Ventricle TAPSE (mm): 26.20 TVS' Singh: 15.10 Tricuspid Valve TR Pk Singh: 2.12 TR Pk Grad: 18.00 RA Press: 3.00 RVSP: 21.00 Great Vessels Aorta Sinus of Valsalva: 4.20 2.0-3.5 cm Ao Asc: 4.00 2.1-3.4 cm Ao Arch: 3.30 Pulmonary Veins Pulm Vein S/D 2.40 Pulmonary Valve PV Pk Singh: 0.84 Peak PV Grad: 3.00 Updated in Other Vendor System with Status of Final Panfilo Lorenzo MD electronically signed on 02/25/2025 1:18:06 PM with status of Final
== END ==
LOC: HO.CARD 12:48
PROVIDERS: PCP Nurse Practitioner Family; Visit Provider Internal Medicine Cardiovascular Disease
DX: I48.0 Paroxysmal atrial fibrillation (principal)
CPT/HCPCS: 93306

== ENCOUNTER → 2025-02-24 12:52 | Outpatient (BNV) | payer MEDICARE, SELFPAY | PROVIDERS: PCP Nurse Practitioner Family; Visit Provider Internal Medicine Cardiovascular Disease | DX: I77.810 Thoracic aortic ectasia (principal) | CPT/HCPCS: 93306 ==